=== PATIENT | female | born 1990 | race African-American/Black ===

== ENCOUNTER 2022-11-01 04:54 | Emergency (ER) | payer BC ==
[~2022-11-01] VITALS: Ht 162.6 cm; Wt 102.0 kg
[2022-11-01 05:02] VITALS: O2SAT 100
[2022-11-01] MEDS ORDERED: NAPR500T7 MT (05:36)
[2022-11-01] MEDS ORDERED: AZIT500T8 MT (05:39)
[2022-11-01 05:45] VITALS: BP 127/88
[2022-11-01] MEDS ORDERED: KETOROLAC 30MG/ML VIAL IM ONE (05:45)
[2022-11-01] MEDS ORDERED: DEXAMETHASONE 10 MG/ML VIAL IM ONE (05:45)
[2022-11-01 05:47] VITALS: PULSE 92; RESP 18; TEMP 99
[2022-11-01 06:47] LABS: MONOTEST NEGATIVE (NEGATIVE)
== END 2022-11-01 05:48 | disposition home or self-care (01) ==
LOC: ER 04:54
DX: J03.90 Acute tonsillitis, unspecified (principal); J45.909 Unspecified asthma, uncomplicated; Z88.0 Allergy status to penicillin; Z98.890 Other specified postprocedural states
CPT/HCPCS: 81025; 87430; 86308; 87070; 87077; 96372; 99284; J1100; J1885; Z7610

== ENCOUNTER 2024-07-15 17:14 | Emergency (ER) | payer SELFPAY ==
[~2024-07-15] VITALS: Ht 167.6 cm; Wt 70.0 kg
[~2024-07-15 17:14] MED LIST: AZIT500T8 MT; NAPR-1486 MT
[2024-07-15 17:46] VITALS: TEMP 36.7; O2SAT 100
[2024-07-15] MEDS: FENTANYL CITRATE/PF 50MCG/ML 2ML VIAL IV ONE (18:19)
[2024-07-15 19:10] VITALS: TEMP 98.7; O2SAT 99
[2024-07-15] MEDS: PROPOFOL 200MG/20ML VIAL IV NR (19:34)
[2024-07-15] MEDS ORDERED: OXYC-100 MT (20:17)
[2024-07-15] MEDS ORDERED: HYDR-4005 MT (20:22)
[2024-07-15 20:24] VITALS: BP 119/67; PULSE 56; RESP 16
[2024-07-15] MEDS: HYDROCODONE/ACETAMINOPHEN 7.5/325MG TABLET PO ONE (20:24)
== END 2024-07-15 20:49 | disposition home or self-care (01) ==
LOC: ER 17:14
DX: S82.892A Other fracture of left lower leg, initial encounter for closed fracture (principal); S82.402A Unspecified fracture of shaft of left fibula, initial encounter for closed fracture; J45.909 Unspecified asthma, uncomplicated; F41.9 Anxiety disorder, unspecified; Z79.1 Long term (current) use of non-steroidal anti-inflammatories (NSAID); Z88.0 Allergy status to penicillin; W01.0XXA Fall on same level from slipping, tripping and stumbling without subsequent striking against object, initial encounter; Y93.01 Activity, walking, marching and hiking; Y92.89 Other specified places as the place of occurrence of the external cause; Y99.8 Other external cause status
CPT/HCPCS: 73590; 73600; 73610; 73620; 27788; 96374; 99152; 99291; J3010; J2704; Z7610 ×2